=== PATIENT | male | born 1995 ===

== ENCOUNTER 2021-12-09 14:57 | Day surgery (SDC) | payer BC, OTHER ==
[~2021-12-09 14:57] MED LIST: Amphotericin B(Fungizone) 0.75 MG in Sterile Water 10 ML IVPB SCH; GANCICLOVIR SODIUM FS SCH; GANCICLOVIR SODIUM IVPB SCH; SODIUM CHLORIDE 0.9% FS SCH; SODIUM CHLORIDE 0.9% IVPB SCH; Vancomycin HCl 100 MG, Sodium Chloride 0.9% 10 ML TOP SCH
[2021-12-09] MEDS ORDERED: Phenylephrine 2.5% Ophth Soln 5 ML BOT ONE (15:21)
[2021-12-09] MEDS ORDERED: Cyclopentolate 1% Opth Drop 2 ML BOT ONE (15:21)
[2021-12-09] MEDS ORDERED: EPINEPHrine 0.3 MG in Ophthalmic Irrigation Solution 500 ML IRR SCH (15:45)
[2021-12-09] MEDS ORDERED: Midazolam HCl 2 mg/2 ml Vial ONE ×2 (17:04→18:03)
[2021-12-09] MEDS ORDERED: Fentanyl 250 MCG/5 ML VIAL ONE (17:04)
[2021-12-09] MEDS ORDERED: Bupivacaine PF 0.75% SDV 10 ML ONE (17:42)
[2021-12-09] MEDS ORDERED: Lidocaine 4% PF 5 ML AMP ONE (17:42)
[2021-12-09] MEDS ORDERED: Vancomycin HCl 500 MG VIAL ONE (17:42)
[2021-12-09] MEDS ORDERED: PROPOFOL 200 MG/20 ML VIAL ONE (17:42)
[2021-12-09] MEDS ORDERED: diphenhydrAMINE 50 MG/ML VIAL ONE (17:42)
[2021-12-09] MEDS ORDERED: Maxitrol 0.1% Opth Oint 3.5 GM TUBE ONE (17:42)
[2021-12-15 12:39] LABS: Fungus Stain Final report (.)
== END 2021-12-09 18:55 | disposition home or self-care (01) ==
LOC: SDC 14:57
PROVIDERS: ATTEND Ophthalmology Retina Specialist
PROC: 08T43ZZ Resection of Right Vitreous, Percutaneous Approach (ICD-10-PCS; principal; 2021-12-09)
DX: H44.001 Unspecified purulent endophthalmitis, right eye (principal)
CPT/HCPCS: 87070; 87102; 87205; 87206; 87207; 87252; J0171; J0285; J0713; J1200; J1570; J2250; J2704; J3010; J3370; J3490

== ENCOUNTER 2023-08-03 15:27 | Emergency (ER) | payer OTHER | END 2023-08-03 17:30 | disposition home or self-care (01) | LOC: ERS 15:27 | DX: J06.9 Acute upper respiratory infection, unspecified (principal); F17.220 Nicotine dependence, chewing tobacco, uncomplicated | CPT/HCPCS: 99283 ==